=== PATIENT | female | born 1970 | race Caucasian/White ===

== ENCOUNTER 2018-10-06 09:27 | Emergency (ER) | payer OTHER ==
[~2018-10-06] VITALS: Ht 157.5 cm; Wt 69.4 kg
[2018-10-06] MEDS ORDERED: ALBUTEROL0.63 MG/3 IH (12:24)
[2018-10-06] MEDS ORDERED: PULMICORT1 MG/2 ML IH (12:24)
== END 2018-10-06 12:49 | disposition home or self-care (01) ==
LOC: ER 09:27
DX: J20.8 Acute bronchitis due to other specified organisms (principal); B34.9 Viral infection, unspecified